=== PATIENT | male | born 1975 | race Caucasian/White ===

== ENCOUNTER 2017-06-05 20:44 | Emergency (ER) | payer SELFPAY ==
[2017-06-05 21:16] VITALS: TEMP 98.5
--- NOTE | 2017-06-05 21:38 | C.PDOC ---
History Of Present Illness 41 y/o male presents to the ER with intermittent swelling and tenderness in the right inguinal area that has been present for 1 week. Patient has no past Hx of an inguinal hernia. Patient feels worse after lifting heavy objects but better when laying supine, pain not related to leg movement. Time Seen by Provider: 06/05/17 21:22 Chief Complaint (Nursing): Groin Pain History Per: Patient History/Exam Limitations: no limitations Onset/Duration Of Symptoms: Days (7 days), Intermittent Episodes Current Symptoms Are (Timing): Still Present Quality Of Discomfort: Unable To Describe Associated Symptoms: denies: Fever, Chills Exacerbating Factors: Movement (lifting heavy objects). denies: Supine Alleviating Factors: None Recent travel outside of the [place]: No Past Medical History Reviewed: Historical Data, Nursing Documentation, Vital Signs Vital Signs: Last Vital Signs Temp 98.5 F 06/05/17 21:47 Pulse 68 06/05/17 21:47 Resp 18 06/05/17 21:47 BP 122/82 06/05/17 21:47 Pulse Ox 97 06/05/17 23:48 - Medical History PMH: No Chronic Diseases Surgical History: No Surg Hx Family History: States: No Known Family Hx - Social History Hx Tobacco Use: No Hx Alcohol Use: No Hx Substance Use: No - Immunization History Hx Tetanus Toxoid Vaccination: No Hx Influenza Vaccination: No Hx Pneumococcal Vaccination: No Review Of Systems Except As Marked, All Systems Reviewed And Found Negative. Constitutional: Negative for: Fever, Chills Genitourinary: Positive for: Other (Right inguinal swelling/pain) Musculoskeletal: Negative for: Leg Pain Neurological: Negative for: Weakness, Numbness Physical Exam - Physical Exam Appears: Non-toxic Skin: Normal Color, Warm, Dry Head: Atraumatic, Normacephalic Eye(s): bilateral: Normal Inspection, EOMI Oral Mucosa: Moist Lymphatic: No Inguinal Node Tenderness Chest: Symmetrical Cardiovascular: Rhythm Regular Respiratory: Normal Breath Sounds Gastrointestinal/Abdominal: Soft, No Tenderness Back: Normal Inspection Male Genital: Other (small reducible right inguinal hernia;approx 2 cm, no scrotal hernia) Neurological/Psych: Oriented x3, Normal Speech, Normal Cognition Gait: Steady ED Course And Treatment O2 Sat by Pulse Oximetry: 97 (Room air) Pulse Ox Interpretation: Normal Progress Note: small R indirect inguinal hernia, easily reduced with digital pressure in supine position with knees flexed. ice pack and motrin 600 PO Medical Decision Making Medical Decision Makin week discomfort small R inguinal herina, easily reducable. advised for opt f/u with Surgery [facility] Founder And Chairman- Dr. Rodriguez Disposition Doctor Will See Patient In The: Office Counseled Patient/Family Regarding: Studies Performed, Diagnosis - Disposition Referrals: [facility] [Outside] [facility] [Outside] [facility] [Outside] Noe Rodriguez MD [Staff Provider] - Disposition: HOME/ ROUTINE Disposition Time: 21:38 Condition: GOOD Additional Instructions: si tiene molestia del hernia, acuesta plano con las piernas dobladas. Con berger dedo empuje la hernia para reducirlo. Applica hielo 1/2 hora por hora juan carlos necessario Alida Ibuprofeno 600 mg cada 6 horas juan carlos necessario Si NO puede reducir la hernia, regressa a la bry de emergencias de pronto. Lllama Dr. Rodriguez- [facility]- para hacer ashli para evaluacion' Instructions: Inguinal Hernia (ED) Forms: [employer] ([place]er) Print Language: TRISTANIAN - Clinical Impression Clinical Impression: Inguinal hernia - Scribe Statement The provider has reviewed the documentation as recorded by the Scribe Breanna Estrada Provider Attestation: All medical record entries made by the Scribe were at my direction and personally dictated by me. I have reviewed the chart and agree that the record accurately reflects my personal performance of the history, physical exam, medical decision making, and the department course for this patient. I have also personally directed, reviewed, and agree with the discharge instructions and disposition.
[2017-06-05 21:48] VITALS: BP 122/82; PULSE 68; RESP 18
[2017-06-05 23:35] VITALS: O2SAT 97
== END 2017-06-05 21:47 | disposition home or self-care (01) ==
LOC: C.ER 20:44
DX: K40.90 Unilateral inguinal hernia, without obstruction or gangrene, not specified as recurrent (principal)